=== PATIENT | female | born 1970 | race African-American/Black ===

== ENCOUNTER 2023-08-03 12:10 | Emergency (ER) | payer OTHER ==
[~2023-08-03] VITALS: Ht 154.9 cm; Wt 68.2 kg
[2023-08-03 12:25] VITALS: TEMP 98.1; O2SAT 98
[2023-08-03] MEDS ORDERED: CETI10TA6 MT (13:43)
[2023-08-03] MEDS ORDERED: TC1C15 TP (13:43)
[2023-08-03 14:08] VITALS: BP 168/99; PULSE 72; RESP 16
== END 2023-08-03 14:08 | disposition home or self-care (01) ==
LOC: ER 13:01
DX: L50.9 Urticaria, unspecified (principal); Z98.890 Other specified postprocedural states
CPT/HCPCS: 99283